=== PATIENT | female | born 1985 | race Caucasian/White ===

== ENCOUNTER 2023-06-18 14:18 | Outpatient (CLI) | payer MEDICAID, SELFPAY ==
[2023-06-21 17:15] LABS: Cockroach IgE 0.23 kU/L (<0.70); Elm IgE <0.10 kU/L (<0.70); Food Panel <0.10 kU/L (<0.70); June Grass IgE <0.10 kU/L (<0.70); Lamb's Quarter IgE <0.10 kU/L (<0.70); Oak IgE <0.10 kU/L (<0.70); Short Ragweed IgE <0.10 kU/L (<0.70); Silver Birch IgE <0.10 kU/L (<0.70); Timothy Grass IgE <0.10 kU/L (<0.70)
== END 2023-06-18 14:19 | disposition home or self-care (01) ==
LOC: LBO 14:18
PROVIDERS: PCP Family Medicine; Visit Provider Otolaryngology Otolaryngology/Facial Plastic Surgery
DX: R21 Rash and other nonspecific skin eruption (principal)
CPT/HCPCS: 36415; 86003